=== PATIENT | male | born 1950 | race Two or more races ===

== ENCOUNTER 2020-06-25 10:43 | Outpatient (CLI) | payer OTHER | END 2020-06-25 12:16 | disposition home or self-care (01) | LOC: OFIC 805 10:43 | PROVIDERS: ATTEND Otolaryngology | DX: K11.8 Other diseases of salivary glands (principal); K21.9 Gastro-esophageal reflux disease without esophagitis; M54.2 Cervicalgia ==

== ENCOUNTER 2021-09-19 12:44 | Outpatient (CLI) | payer OTHER | END 2021-09-19 12:57 | disposition home or self-care (01) | LOC: LAB 12:44 | PROVIDERS: ATTEND Urology | DX: R97.20 Elevated prostate specific antigen [PSA] (principal) ==

== ENCOUNTER 2021-09-24 07:38 | Outpatient (CLI) | payer OTHER | END 2021-09-24 07:39 | disposition home or self-care (01) | LOC: NUCLEAR 07:38 | PROVIDERS: ATTEND Urology | DX: C61 Malignant neoplasm of prostate (principal) | CPT/HCPCS: 78306; A9503 ==

== ENCOUNTER 2021-10-03 07:09 | Outpatient (CLI) | payer OTHER | END 2021-10-03 07:24 | disposition home or self-care (01) | LOC: SONOGRAMA 07:09 | PROVIDERS: ATTEND Urology | DX: C80.1 Malignant (primary) neoplasm, unspecified (principal); R97.0 Elevated carcinoembryonic antigen [CEA] ==